=== PATIENT | female | born 1965 | race Caucasian/White ===

== ENCOUNTER → 2020-04-02 10:06 | Outpatient (CLI) | payer OTHER, SELFPAY ==
[2020-04-05 03:07] LABS: QNTFERON TB Mitogen Value 5.76 IU/mL (.); QNTFERON TB Nil Value 0.01 IU/mL (.); QNTFERON TB1+ Ag Value 0.02 IU/mL (.); QNTFERON TB2+ Ag Value 0.02 IU/mL (.)
[2020-04-06 01:11] LABS: QNTIFERON TB Positive Criteria Negative (Negative)
== END ==
PROVIDERS: PCP Orthopaedic Surgery; Referring Provider Internal Medicine Rheumatology; Visit Provider Internal Medicine Rheumatology
DX: M06.09 Rheumatoid arthritis without rheumatoid factor, multiple sites (principal); Z79.899 Other long term (current) drug therapy; E03.9 Hypothyroidism, unspecified
CPT/HCPCS: 36415; 86480

== ENCOUNTER 2021-03-26 06:48 | Day surgery (SDC) | payer OTHER, SELFPAY ==
--- NOTE | 2021-03-18 13:09 | HP.PCM_ITS ---
History and Physical Date of Admission: 03/26/21 HPI: The patient is a 55 year old female presenting for to discuss abnormal uterine bleeding. She had a previous endometrial biopsy and pelvic US that I reviewed. Irreg menses then in January 3 week menses. Started on Aygestin which slowed the bleeding and now here to discuss options. She is scheduled for hysteroscopy with endometrial polypectomy and IUD insertion, for AUB due to perimenopause and endometrial polyp on 03/26/21. Procedure discussed along with risks, benefits and complications. Other alternatives discussed for management. Consent form signed? Yes. PAST MEDICAL HISTORY PAST MEDICAL HISTORY Diagnosis Date ? Arthritis 2010 rheumatoid ? Atrial tachycardia (HCC) ? Broken ankle 01/2011 ? Lichen sclerosus ? Other specified acquired hypothyroidism PAST SURGICAL HISTORY PAST SURGICAL HISTORY Procedure Laterality Date ? D&C (MISSED AB 1ST TRIMESTER) 1986 CURRENT MEDICATIONS Current Outpatient Medications Medication Sig Dispense Refill ? norethindrone (AYGESTIN) 5 mg tablet Take 1 tablet TID until bleeding stops, the BID x 3 days, the daily x 3 days. 35 tablet 0 ? certolizumab pegol (CIMZIA) 400 mg/2 mL (200 mg/mL x 2) sub-q syringe kit Inject 400 mg subcutaneously one time only. ? levothyroxine (SYNTHROID) 125 mcg tablet Take 1 tablet by mouth daily before breakfast. 0 ? tofacitinib 5 mg tab Take by mouth twice daily. ? metoprolol succinate XL, long acting, (TOPROL XL) 25 mg 24 hr tablet Take 25 mg by mouth once daily. 75 mg daily ? methotrexate 2.5 mg ORAL tablet takes a total of 12.5mg weekly 0 ? folic acid 1 mg ORAL tablet Take two (2) tablet daily. 0 ? leucovorin 5 mg ORAL tablet 5mg weekly 0 ? DAILY MULTIVITAMIN TAB take one daily 0 No current facility-administered medications for this visit. ALLERGIES: Patient has no known allergies. PERSONAL HISTORY: SOCIAL HISTORY Social History Tobacco Use ? Smoking status: Never Smoker ? Smokeless tobacco: Never Used Vaping Use ? Vaping Use: Never used Substance Use Topics ? Alcohol use: No ? Drug use: No FAMILY HISTORY: FAMILY HISTORY FAMILY HISTORY Problem Relation Age of Onset ? other (ARRTHYMIA) Mother ? other (lewy body demntia) Mother ? Cancer Father neroendocrine carcanoma ? Breast Cancer Maternal Aunt ? Diabetes Brother REVIEW OF SYMPTOMS: GENERAL: denies fevers or chills ENDOCRINOLOGY: has not been on steroids Cardiology : denies palpitations or chest pain Respiratory: denies SOB or cough Hematology: denies history of prolonged bleeding or easy bruising or VTE Allergy: Denies history of personal or family history of allergy to anesthesia PHYSICAL EXAMINATION: VITALS: Last menstrual period 01/12/2019. GENERAL: The patient is well nourished, well hydrated in no acute distress. , The patient is oriented to time, place, and person. NECK: Supple. No lynphadenopathy, normal thyroid, no thyromegaly. LUNGS: Clear to auscultation bilaterally. no wheezes, rhonchi or rales HEART: Regular rate and rhythm, Normal heart sounds and No murmurs or gallops IMPRESSION: AUB/perimenopausal, intramural uterine fibroid/adenomyosis PLAN: The risks/benefits/alternatives and personal involved for the planned hysteroscopy dilation and curettage and endometrial polyp resection and Liletta or Mirena IUD insertion were reviewed with the patient. Her questions were answered to her satisfaction and she desires to proceed. Consent was signed. I reviewed with her postop instructions and expectations. I have reviewed and updated past medical and surgical history, medications and allergies HPI: The patient is a 55 year old female presenting for?to discuss abnormal uterine bleeding. ?She had a previous endometrial biopsy and pelvic US that I reviewed. ?Irreg menses then in January 3 week menses. ?Started on Aygestin which slowed the bleeding and now here to discuss options. She is scheduled for?hysteroscopy with endometrial polypectomy and IUD ins ertion, for?AUB due to perimenopause and endometrial polyp on?03/26/21. ??Procedure discussed along with risks, benefits and complications. ?Other alternatives discussed for management. Consent form signed??Yes.? PAST MEDICAL HISTORY ? ? ? PAST MEDICAL HISTORY Diagnosis Date ? Arthritis 2010 ? rheumatoid ? Atrial tachycardia (HCC) ? ? Broken ankle 01/2011 ? Lichen sclerosus ? ? Other specified acquired hypothyroidism ? PAST SURGICAL HISTORY ? PAST SURGICAL HISTORY Procedure Laterality Date ? D&C (MISSED AB 1ST TRIMESTER) ? 1986 ? ? ? CURRENT MEDICATIONS ? Current Outpatient Medications Medication Sig Dispense Refill ? norethindrone (AYGESTIN) 5 mg tablet Take 1 tablet TID until bleeding stops, the BID x 3 days, the daily x 3 days. 35 tablet 0 ? certolizumab pegol (CIMZIA) 400 mg/2 mL (200 mg/mL x 2) sub- q syringe kit Inject 400 mg subcutaneously one time only. ? ? ? levothyroxine (SYNTHROID) 125 mcg tablet Take 1 tablet by mouth daily before breakfast. ? 0 ? tofacitinib 5 mg tab Take ?by mouth twice daily. ? ? ? metoprolol succinate XL, long acting, (TOPROL XL) 25 mg 24 hr tablet Take 25 mg by mouth once daily. 75 mg daily ? ? ? methotrexate 2.5 mg ORAL tablet takes a total of 12.5mg weekly ? 0 ? folic acid 1 mg ORAL tablet Take two (2) tablet daily. ? 0 ? leucovorin 5 mg ORAL tablet 5mg weekly ? 0 ? DAILY MULTIVITAMIN TAB take one daily ? 0 ? No current facility-administered medications for this visit. ? ? ALLERGIES:?Patient has no known allergies. ? PERSONAL HISTORY:? SOCIAL HISTORY Social History ? Tobacco Use ? Smoking status: Never Smoker ? Smokeless tobacco: Never Used Vaping Use ? Vaping Use: Never used Substance Use Topics ? Alcohol use: No ? Drug use: No ?? ? FAMILY HISTORY:? FAMILY HISTORY ? FAMILY HISTORY Problem Relation Age of Onset ? other (ARRTHYMIA) Mother ? ? other (lewy body demntia) Mother ? ? Cancer Father ?neroendocrine carcanoma ? Breast Cancer Maternal Aunt ? ? Diabetes Brother ? ? ? REVIEW OF SYMPTOMS: GENERAL: denies fevers or chills ENDOCRINOLOGY: has not been on steroids Cardiology : denies palpitations or chest pain Respiratory: denies SOB or cough Hematology: denies history of prolonged bleeding or easy bruising or VTE Allergy: Denies history of personal or family history of allergy to anesthesia ? ? PHYSICAL EXAMINATION: ? VITALS:?Last menstrual period 01/12/2019. ? GENERAL:??The patient is well nourished, well hydrated in no acute distress. ?, The patient is oriented to time, place, and person. NECK:?Supple. No lynphadenopathy, normal thyroid, no thyromegaly. LUNGS:?Clear to auscultation bilaterally. no wheezes, rhonchi or rales HEART:?Regular rate and rhythm, Normal heart sounds and No murmurs or gallops ? IMPRESSION:?AUB/perimenopausal, intramural uterine fibroid/adenomyosis ? PLAN:???The risks/benefits/alternatives and personal involved for the planned?hysteroscopy dilation and curettage and endometrial polyp resection and Liletta or Mirena IUD insertion?were reviewed with the patient. Her questions were answered to her satisfaction and she desires to proceed. ?Consent was signed. ?I reviewed with her postop instructions and expectations. ? ? I have reviewed and updated past medical and surgical history, medications and allergiesHPI: The patient is a 55 year old female presenting for?to discuss abnormal uterine bleeding. ?She had a previous endometrial biopsy and pelvic US that I reviewed. ?Irreg menses then in January 3 week menses. ?Started on Aygestin which slowed the bleeding and now here to discuss options. She is scheduled for?hysteroscopy with endometrial polypectomy and IUD insertion, for?AUB due to perimenopause and endometrial polyp on?03/26/21. ??Procedure discussed along with risks, benefits and complications. ?Other alternatives discussed for management. Consent form signed??Yes.? PAST MEDICAL HISTORY ? ? ? PAST MEDICAL HISTORY Diagnosis Date ? Arthritis 2010 ? rheumatoid ? Atrial tachycardia (HCC) ? ? Broken ankle 01/2011 ? Lichen sclerosus ? ? Other specified acquired hypothyroidism ? PAST SURGICAL HISTORY ? PAST SURGICAL HISTORY Procedure Laterality Date ? D&C (MISSED AB 1ST TRIMESTER) ? 1986 ? ? ? CURRENT MEDICATIONS ? Current Outpatient Medications Medication Sig Dispense Refill ? norethindrone (AYGESTIN) 5 mg tablet Take 1 tablet TID until bleeding stops, the BID x 3 days, the daily x 3 days. 35 tablet 0 ? certolizumab pegol (CIMZIA) 400 mg/2 mL (200 mg/mL x 2) sub- q syringe kit Inject 400 mg subcutaneously one time only. ? ? ? levothyroxine (SYNTHROID) 125 mcg tablet Take 1 tablet by mouth daily before breakfast. ? 0 ? tofacitinib 5 mg tab Take ?by mouth twice daily. ? ? ? metoprolol succinate XL, long acting, (TOPROL XL) 25 mg 24 hr tablet Take 25 mg by mouth once daily. 75 mg daily ? ? ? methotrexate 2.5 mg ORAL tablet takes a total of 12.5mg weekly ? 0 ? folic acid 1 mg ORAL tablet Take two (2) tablet daily. ? 0 ? leucovorin 5 mg ORAL tablet 5mg weekly ? 0 ? DAILY MULTIVITAMIN TAB take one daily ? 0 ? No current facility-administered medications for this visit. ? ? ALLERGIES:?Patient has no known allergies. ? PERSONAL HISTORY:? SOCIAL HISTORY Social History ? Tobacco Use ? Smoking status: Never Smoker ? Smokeless tobacco: Never Used Vaping Use ? Vaping Use: Never used Substance Use Topics ? Alcohol use: No ? Drug use: No ?? ? FAMILY HISTORY:? FAMILY HISTORY ? FAMILY HISTORY Problem Relation Age of Onset ? other (ARRTHYMIA) Mother ? ? other (lewy body demntia) Mother ? ? Cancer Father ?neroendocrine carcanoma ? Breast Cancer Maternal Aunt ? ? Diabetes Brother ? ? ? REVIEW OF SYMPTOMS: GENERAL: denies fevers or chills ENDOCRINOLOGY: has not been on steroids Cardiology : denies palpitations or chest pain Respiratory: denies SOB or cough Hematology: denies history of prolonged bleeding or easy bruising or VTE Allergy: Denies history of personal or family history of allergy to anesthesia ? ? PHYSICAL EXAMINATION: ? VITALS:?Last menstrual period 01/12/2019. ? GENERAL:??The patient is well nourished, well hydrated in no acute distress. ?, The patient is oriented to time, place, and person. NECK:?Supple. No lynphadenopathy, normal thyroid, no thyromegaly. LUNGS:?Clear to auscultation bilaterally. no wheezes, rhonchi or rales HEART:?Regular rate and rhythm, Normal heart sounds and No murmurs or gallops ? IMPRESSION:?AUB/perimenopausal, intramural uterine fibroid/adenomyosis ? PLAN:???The risks/benefits/alternatives and personal involved for the planned?hysteroscopy dilation and curettage and endometrial polyp resection and Liletta or Mirena IUD insertion?were reviewed with the patient. Her questions were answered to her satisfaction and she desires to proceed. ?Consent was signed. ?I reviewed with her postop instructions and expectations. ? ? I have reviewed and updated past medical and surgical history, medications and allergies Assessment & Plan Assessment/Plan (1) Abnormal uterine bleeding: Status: Acute Code(s): N93.9 - Abnormal uterine and vaginal bleeding, unspecified Plan: Same plan for all. See above portion of H&P. This H&P was completed in my office on 03/18/22. (2) Intramural uterine fibroid: Status: Acute Code(s): D25.1 - Intramural leiomyoma of uterus (3) Adenomyosis: Status: Acute Code(s): N80.0 - Endometriosis of uterus (4) Endometrial polyp: Status: Acute Code(s): N84.0 - Polyp of corpus uteri
--- NOTE | 2021-03-19 11:34 | NURSING ---
pt states she will get COVID test completed on 03/23/21 at [facility] in [place], [place], and will fax those results to [phone] (PAT#2) by 1200 noon on 03/25/21.
[2021-03-26 07:06] LABS: Internal QC Validated? YES +Cl - CLEAR BKGD; Pregnancy, Urine Negative Negative
[2021-03-26 07:16] VITALS: BP 171/84; PULSE 71; RESP 16; TEMP 36.3; O2SAT 100; BMI 34.9
[2021-03-26] MEDS: Celecoxib 200 MG Capsule 400 MG PO (07:23)
[2021-03-26] MEDS: Acetaminophen 500 MG Tablet 1000 MG PO (07:23)
[2021-03-26] MEDS: Lactated Ringers 1,000 ML 100 ML IV (07:25)
[2021-03-26] MEDS: Lidocaine 1% /Epi 1:100 (20ml) 20 ML Vial (08:35)
--- NOTE | 2021-03-26 08:35 | EMB_PTH ---
PATIENT: MARSHA MCGOWAN [place] [facility] [id number] AGE/SX: 55/F ROOM: RE03/26/[address]: Dr. Elvi Alfonso MD : 1965 BED: DIS: 03/26/2021 SPEC #: [id number] RECD: 03/26/21 10:37 STATUS: ROSI TAO #: [id number] LIAN: 03/26/21 08:[address]: Elvi Alfonso DEPT: SURGICAL PATHOLOGY RECD BY: Graciela Jarquin ENTERED: 03/26/21 11:25 SP TYPE: ENDOM BX/C CARMEN DR: Dr. Girish Contreras MD Tissues: Endometrium, NOS Procedures: Surgery Specimen Level IV HEADER OPERATION: Hysteroscopy, dilation and curettage, polypectomy, IUD insert PRE-OP DIAGNOSIS: Abnormal uterine bleeding; intramural leiomyoma, endometrial polyp TISSUE SUBMITTED: Endometrial curettings MICROSCOPIC DIAGNOSIS Endometrial curettings: Fragments of benign endometrial tissue with changes consistent with exogenous hormone effects. Fragments of myometrium with changes suggestive of adenomyosis. See comment. UYEN:yandy 03/27/2021 COMMENT Clinical correlation and appropriate follow up are necessary. MICROSCOPIC DESCRIPTION Slides are reviewed. GROSS DESCRIPTION Received in fixative is one container labeled with the patient's name and designated endometrial curettings. The specimen consists of multiple irregular fragments of light valdez soft tissue that in aggregate measure 5 x 3 x 0.3 cm. The specimen is totally submitted in two cassettes. / UYEN:yandy 03/26/21 TC:5 CPT: 05204
[2021-03-26] MEDS: Levonorgestrel IUD (Liletta) 1 EACH INTRA-UTER (09:00)
--- NOTE | 2021-03-26 09:02 | PCM.DC ---
Discharge Instructions Diet Discharge Diet: No restrictions Activity Discharge Activity: May Shower and May Take a Tub Bath (or swim in 2 weeks) May resume sexual activity in: 2 weeks Lifting Restrictions: none Additional Activity Instructions:: You make acetaminophen or ibuprofen as needed for pain. Use an ice or heat pack as needed. Dressing / Incision Call your doctor if your incision/area has: Sudden Increased Bleeding and Foul Smelling Discharge Call your doctor if you observe: Fever of 101 or Higher and Using more than one pad per hour (for 2 hrs in a row) Follow Up Care Please Follow Up With: Elvi Alfonso MD When: 2-4 weeks or as needed. Call [phone] to make an appointment or with any concerns. Test Results: Test results from this visit will be discussed in further detail at your follow-up appointment, if applicable. Discharge Plan Admission Attending Provider: Elvi Alfonso Primary Care Provider: Girish Contreras Discharge Orders/Prescriptions Prescriptions: Continued prednisone 10 mg tablet 10 mg PO DAILY PRN PRN (Reason: arthritis flare up) RF: 0 metoprolol succinate [Toprol XL] 50 mg Tablet Extended Release 24 Hr 75 mg PO DAILY RF: 0 tramadol 50 mg Tablet 50 mg PO BID PRN (Reason: arthritis flare up) RF: 0 methotrexate sodium 2.5 mg tablet 20 mg PO FR RF: 0 levothyroxine 125 mcg tablet 125 mcg PO DAILY RF: 0 leucovorin calcium 5 mg tablet 5 mg PO SA RF: 0 folic acid 1 mg tablet 2 mg PO DAILY RF: 0 norethindrone acetate 5 mg Tablet 10 mg PO DAILY RF: 0 Cimzia 400 mg/2 mL (200 mg/mL x 2) Syringe Kit 200 mg SUBCUT .QOWK RF: 0 Referrals / Follow Up: Girish Contreras MD [Primary Care Provider] - Disposition Discharge Orders: Discharge Patient (Routine); Ordered 03/26/21 Ordered By: Dr. Elvi Alfonso
--- NOTE | 2021-03-26 09:08 | OP.PCM_ITS ---
Problems Associated Problem List Diagnoses (1) Abnormal uterine bleeding: (2) Intramural uterine fibroid: (3) Endometrial polyp: Report of Operation Date of Procedure: 03/26/21 Pre-Operative Diagnosis: abnormal uterine bleeding, endometrial polyp Post-Operative Diagnosis: same Surgery/Procedure Performed:: hysteroscopy D&C with symphion device Description of Surgical Findings:: thin endometrium, no discrete polyp, uterine fibroid partially protrudint into endometrial cavity international freight forwarder: None Type of Anesthesia: MAC/Supplemental/Local Special Medications: none Specimen's removed: endometrial curettings Drains: none Estimated Blood Loss (mL): 10 Fluids Replaced: 800 cc Description of Procedure: The patient was taken to the OR where she was prepped and draped in dorsal lithotomy position. The weighted speculum was placed in the vagina and the anterior lip of the cervix was grasped with a single-tooth tenaculum. A paracervical block was administered with [1% lidocaine with 1- 100,000 epinephrine solution]. The cervix was dilated serially with Hegar dilators. The Symphion hysteroscope was placed into the uterine cavity and the above findings were noted. Bilateral tubal ostia [were] identified The Symphion device was inserted and a visual D&C was performed and partial myomectomy. The instruments were removed and the Liletta IUD inserted in the usual sterile fashion and the strings trimmed to 2 cm. . The instruments were removed from the vagina. The specimen was handed off and sent to pathology. All sponge and needle counts were correct. Vaginal sweep was performed by me. The patient was awakened and taken to the recovery room in stable condition. Calculated hysteroscopic fluid deficit was 650 cc of normal saline. Start time 0848 Stop time 09 Grafts/Implants Used: Liletta device Complications none Admit VTE Documentation VTE Present on Admission: No VTE Mechan Device Prophylaxis: SCD's VTE Pharm Prophylaxis ordered?: No Reason prophylaxis not ordered:: Procedure Not Indicated
[2021-03-26 09:15] VITALS: BP 135/65; BP 171/84; PULSE 81; RESP 16; TEMP 36.6; O2SAT 100
[2021-03-26 09:20] VITALS: BP 119/78; BP 171/84; PULSE 77; RESP 16; O2SAT 100
[2021-03-26 09:25] VITALS: BP 102/69; BP 171/84; PULSE 67; RESP 16; O2SAT 100
[2021-03-26 09:30] VITALS: BP 124/86; BP 171/84; PULSE 63; RESP 16; TEMP 36.3; O2SAT 100
[2021-03-26 10:07] VITALS: BP 171/84
== END 2021-03-26 10:30 ==
LOC: SDC 06:49 → AC 06:49
PROVIDERS: PCP Orthopaedic Surgery; Referring Provider Obstetrics & Gynecology; Visit Provider Obstetrics & Gynecology
PROC: 0UB98ZZ Excision of Uterus, Via Natural or Artificial Opening Endoscopic (ICD-10-PCS; CPT 58558; principal; 2021-03-26 08:25)
DX: D25.1 Intramural leiomyoma of uterus (principal); N84.0 Polyp of corpus uteri; N80.0 Endometriosis of uterus; N92.4 Excessive bleeding in the premenopausal period; I10 Essential (primary) hypertension; E03.9 Hypothyroidism, unspecified; M06.9 Rheumatoid arthritis, unspecified; Z79.899 Other long term (current) drug therapy
CPT/HCPCS: 00952; 58300; 58558; 81025; 87426; 88305; C9803; J7120; J2405

== ENCOUNTER → 2023-10-10 | Outpatient (CLI) | payer OTHER, SELFPAY ==
[2023-10-12 21:07] LABS: QNTFERON TB Mitogen Value > 10.00 IU/mL (.); QNTFERON TB Nil Value 0 IU/mL (.); QNTFERON TB1+ Ag Value 0 IU/mL (.); QNTFERON TB2+ Ag Value 0 IU/mL (.); QNTIFERON TB Positive Criteria Negative (Negative)
== END | disposition home or self-care (01) ==
PROVIDERS: PCP Orthopaedic Surgery; Referring Provider Internal Medicine Rheumatology; Visit Provider Internal Medicine Rheumatology
DX: M06.09 Rheumatoid arthritis without rheumatoid factor, multiple sites (principal); Z79.899 Other long term (current) drug therapy; E03.9 Hypothyroidism, unspecified; M47.897 Other spondylosis, lumbosacral region
CPT/HCPCS: 36415; 86480